=== PATIENT | female | born 1970 | race Caucasian/White ===

== ENCOUNTER → 2018-04-22 | Outpatient (CLI) | payer OTHER | LOC: CIMAGING 16:36 | DX: M79.641 Pain in right hand (principal); M79.642 Pain in left hand; M79.672 Pain in left foot; M85.841 Other specified disorders of bone density and structure, right hand; M85.872 Other specified disorders of bone density and structure, left ankle and foot; M85.871 Other specified disorders of bone density and structure, right ankle and foot; M85.471 Solitary bone cyst, right ankle and foot | CPT/HCPCS: 73130-PO; 73630-PO ==